=== PATIENT | female | born 1995 | race Two or more races ===

== ENCOUNTER → 2023-04-12 | Outpatient (CLI) | payer BC ==
[2023-04-12 16:17] LABS: HEMATOCRIT 43.1 % (36.0-47.0); HEMOGLOBIN 14.5 g/dl (12.0-15.5); MEAN CORPUSCULAR HEMOGLOBIN 31.6 pg (27.0-33.0); MEAN CORPUSCULAR HGB CONC 33.6 g/dl (32.0-36.5); MEAN CORPUSCULAR VOLUME 93.9 fl (80.0-96.0); PLATELET COUNT, AUTOMATED 279 10^3/uL (150-450); RED BLOOD COUNT 4.59 10^6/uL (4.00-5.40); WHITE BLOOD COUNT 10.3 10^3/uL (4.0-10.0)
[2023-04-12 17:08] LABS: HIV 1&2 SCREEN NEGATIVE (NEGATIVE)
[2023-04-12 17:17] LABS: HEPATITIS C VIRUS ABY INDEX 0.15 INDEX (<0.8)
[2023-04-12 17:31] LABS: GC DNA AMPLIFICATION NEGATIVE (NEGATIVE)
== END ==
LOC: M PLALAB 11:28
PROVIDERS: ATTEND Obstetrics & Gynecology
DX: Z34.91 Encounter for supervision of normal pregnancy, unspecified, first trimester (principal)

== ENCOUNTER → 2023-05-27 | Outpatient (REF) | payer BC | LOC: M SFHCWAGY 12:48 | PROVIDERS: ATTEND Advanced Practice Midwife | DX: Z34.02 Encounter for supervision of normal first pregnancy, second trimester (principal) ==

== ENCOUNTER → 2023-06-08 | Outpatient (CLI) | payer BC | LOC: M WHC 08:54 | PROVIDERS: ATTEND Advanced Practice Midwife | DX: O32.1XX0 Maternal care for breech presentation, not applicable or unspecified (principal); Z3A.19 19 weeks gestation of pregnancy ==

== ENCOUNTER → 2023-07-20 | Outpatient (CLI) | payer BC | LOC: M WHC 08:12 | PROVIDERS: ATTEND Specialist | DX: Z34.02 Encounter for supervision of normal first pregnancy, second trimester (principal); Z3A.26 26 weeks gestation of pregnancy ==

== ENCOUNTER → 2024-05-18 | Outpatient (REF) | payer BC ==
[~2024-05-18] MED LIST: GNP250TA9 PO; OMEGCAP4 PO; PRENTAB9 PO; QC A PO
== END ==
LOC: M LAB REF 16:09
PROVIDERS: ATTEND Internal Medicine
DX: M25.50 Pain in unspecified joint (principal)

== ENCOUNTER → 2025-08-23 | Outpatient (CLI) | payer BC ==
[~2025-08-23] MED LIST changes: -QC A PO; +[UNRECOGNIZED DRUG - CODE] PO
[2025-08-23 11:42] LABS: FREE T4 1.36 NG/DL (0.89-1.76)
== END ==
LOC: M PLALAB 09:10
PROVIDERS: ATTEND Advanced Practice Midwife
DX: E03.8 Other specified hypothyroidism (principal)